=== PATIENT | female | born 1945 | race Native Hawaiian/Other Pacific Islander ===

== ENCOUNTER 2017-05-12 07:55 | Outpatient (CLI) | payer OTHER ==
[~2017-05-12 07:55] MED LIST: AMIT25TA22 PO; ASA LO-DOSE81 MG PO; CETIRIZINE5 MG PO; MELATONIN5 MG PO; MELOXICAM7.5 MG OR; MELOXICAM7.5 MG PO; OMEPRAZOLE20 M1 OR; TRAZ100T OR
[2017-05-12 08:10] LABS: PLATELET COUNT 344 K/uL (152-353)
[2017-05-12 09:15] LABS: POTASSIUM 4.4 mmol/L (3.6-5.2)
== END 2017-05-12 19:09 | disposition home or self-care (01) ==
LOC: LABW 07:55
PROVIDERS: Internal Medicine
DX: I10 Essential (primary) hypertension (principal)
CPT/HCPCS: 36415; 80053; 80061; 81000; 84439; 84443; 85027

== ENCOUNTER 2017-05-29 06:51 | Outpatient (CLI) | payer OTHER | END 2017-05-29 17:50 | disposition home or self-care (01) | LOC: LABW 06:51 | DX: R73.9 Hyperglycemia, unspecified (principal) | CPT/HCPCS: 36415; 82951; 82952; 83036 ==

== ENCOUNTER 2017-08-20 07:36 | Outpatient (CLI) | payer OTHER | END 2017-08-20 19:04 | disposition home or self-care (01) | LOC: LABW 07:36 | DX: E11.9 Type 2 diabetes mellitus without complications (principal) | CPT/HCPCS: 36415; 83036 ==

== ENCOUNTER 2017-11-13 08:12 | Outpatient (CLI) | payer OTHER | END 2017-11-13 19:40 | disposition home or self-care (01) | LOC: MAMMO 08:12 | DX: Z12.31 Encounter for screening mammogram for malignant neoplasm of breast (principal); M81.0 Age-related osteoporosis without current pathological fracture ==

== ENCOUNTER 2018-10-06 07:26 | Outpatient (CLI) | payer OTHER ==
[2018-10-06 08:21] LABS: PLATELET COUNT 339 K/uL (152-353)
[2018-10-06 08:48] LABS: POTASSIUM 4.6 mmol/L (3.6-5.2)
== END 2018-10-06 21:28 | disposition home or self-care (01) ==
LOC: LABW 07:26
PROVIDERS: Physician Assistant
DX: F41.1 Generalized anxiety disorder (principal); I10 Essential (primary) hypertension; R73.9 Hyperglycemia, unspecified; E55.9 Vitamin D deficiency, unspecified
CPT/HCPCS: 36415; 80053; 80061; 82306; 83036; 84439; 84443; 85027

== ENCOUNTER 2018-11-18 07:51 | Outpatient (CLI) | payer OTHER | END 2018-11-18 19:00 | disposition home or self-care (01) | LOC: MAMMO 07:51 | DX: Z12.31 Encounter for screening mammogram for malignant neoplasm of breast (principal) ==

== ENCOUNTER 2019-04-26 07:05 | Outpatient (CLI) | payer OTHER ==
[2019-04-26 07:22] LABS: PLATELET COUNT 340 K/uL (152-353)
[2019-04-26 10:33] LABS: POTASSIUM 4.2 mmol/L (3.6-5.2)
== END 2019-04-26 19:09 | disposition home or self-care (01) ==
LOC: LABW 07:05
PROVIDERS: Internal Medicine Nephrology
DX: I12.9 Hypertensive chronic kidney disease with stage 1 through stage 4 chronic kidney disease, or unspecified chronic kidney disease (principal); N18.3 Chronic kidney disease, stage 3 (moderate); E11.9 Type 2 diabetes mellitus without complications; M16.9 Osteoarthritis of hip, unspecified; E78.49 Other hyperlipidemia
CPT/HCPCS: 36415; 80053; 85027

== ENCOUNTER 2019-11-02 07:42 | Outpatient (CLI) | payer OTHER ==
[2019-11-02 08:14] LABS: PLATELET COUNT 343 K/uL (152-353)
[2019-11-02 08:37] LABS: POTASSIUM 4.3 mmol/L (3.6-5.2)
== END 2019-11-02 20:47 | disposition home or self-care (01) ==
LOC: LABW 07:42
PROVIDERS: Internal Medicine Nephrology
DX: Z00.00 Encounter for general adult medical examination without abnormal findings (principal); I12.9 Hypertensive chronic kidney disease with stage 1 through stage 4 chronic kidney disease, or unspecified chronic kidney disease; E11.9 Type 2 diabetes mellitus without complications; Z13.820 Encounter for screening for osteoporosis; E55.9 Vitamin D deficiency, unspecified; N18.3 Chronic kidney disease, stage 3 (moderate); E78.49 Other hyperlipidemia; M16.9 Osteoarthritis of hip, unspecified
CPT/HCPCS: 36415; 80053; 80061; 81000; 82306; 84439; 84443; 85027

== ENCOUNTER 2019-11-23 08:48 | Outpatient (CLI) | payer OTHER | END 2019-11-23 20:08 | disposition home or self-care (01) | LOC: MAMMO 08:48 | DX: Z13.820 Encounter for screening for osteoporosis (principal); Z12.31 Encounter for screening mammogram for malignant neoplasm of breast; N95.8 Other specified menopausal and perimenopausal disorders ==

== ENCOUNTER 2020-05-08 07:14 | Outpatient (CLI) | payer OTHER ==
[2020-05-08 08:09] LABS: PLATELET COUNT 321 K/uL (152-353)
== END 2020-05-08 22:02 | disposition home or self-care (01) ==
LOC: LABW 07:14
PROVIDERS: Internal Medicine Nephrology
DX: E11.9 Type 2 diabetes mellitus without complications (principal); E78.49 Other hyperlipidemia; G89.29 Other chronic pain; G62.89 Other specified polyneuropathies; I12.9 Hypertensive chronic kidney disease with stage 1 through stage 4 chronic kidney disease, or unspecified chronic kidney disease; N18.3 Chronic kidney disease, stage 3 (moderate); M16.9 Osteoarthritis of hip, unspecified
CPT/HCPCS: 36415; 80053; 82570; 84155; 85027

== ENCOUNTER 2020-05-24 07:08 | Outpatient (CLI) | payer OTHER ==
[2020-05-24 08:20] LABS: PLATELET COUNT 317 K/uL (152-353)
== END 2020-05-24 22:02 | disposition home or self-care (01) ==
LOC: LABW 07:08
PROVIDERS: Internal Medicine
DX: D64.89 Other specified anemias (principal); E11.9 Type 2 diabetes mellitus without complications
CPT/HCPCS: 36415; 80053; 80061; 81000; 82043; 82570; 82607; 82728; 82747; 83036; 83540; 83550; 84439; 84443; 85027

== ENCOUNTER 2020-12-14 07:11 | Outpatient (CLI) | payer OTHER ==
[2020-12-14 08:10] LABS: PLATELET COUNT 301 K/uL (152-353)
[2020-12-14 08:46] LABS: POTASSIUM 4.2 mmol/L (3.6-5.2)
== END 2020-12-14 20:35 | disposition home or self-care (01) ==
LOC: LABW 07:11
PROVIDERS: ATTEND Internal Medicine
DX: E11.9 Type 2 diabetes mellitus without complications (principal)
CPT/HCPCS: 36415; 80053; 80061; 81000; 82043; 83036; 84439; 84443; 85027

== ENCOUNTER 2021-01-23 09:14 | Outpatient (CLI) | payer OTHER | END 2021-01-23 19:48 | disposition home or self-care (01) | LOC: INF 09:14 | PROVIDERS: ATTEND Internal Medicine | DX: Z23 Encounter for immunization (principal) | CPT/HCPCS: 96372 ==

== ENCOUNTER 2021-02-20 08:18 | Outpatient (CLI) | payer OTHER | END 2021-02-20 19:51 | disposition home or self-care (01) | LOC: INF 08:18 | PROVIDERS: ATTEND Internal Medicine | DX: Z23 Encounter for immunization (principal) | CPT/HCPCS: 96372 ==

== ENCOUNTER 2021-07-13 06:59 | Outpatient (CLI) | payer OTHER ==
[2021-07-13 07:31] LABS: PLATELET COUNT 279 K/uL (152-353)
[2021-07-13 07:49] LABS: POTASSIUM 4.7 mmol/L (3.6-5.2)
== END 2021-07-13 19:03 | disposition home or self-care (01) ==
LOC: LABW 06:59
PROVIDERS: ATTEND Internal Medicine
DX: M54.2 Cervicalgia (principal); M54.5 Low back pain; E11.9 Type 2 diabetes mellitus without complications
CPT/HCPCS: 36415; 80053; 80061; 82043; 82570; 83036; 84439; 84443; 85027

== ENCOUNTER 2022-03-29 11:41 | Outpatient (CLI) | payer OTHER ==
[2022-03-29 11:56] LABS: PLATELET COUNT 285 K/uL (152-353)
[2022-03-29 12:12] LABS: POTASSIUM 4.4 mmol/L (3.6-5.2)
== END 2022-03-29 20:00 | disposition home or self-care (01) ==
LOC: LAB 11:41
PROVIDERS: ATTEND Internal Medicine
DX: E11.9 Type 2 diabetes mellitus without complications (principal); R82.998 Other abnormal findings in urine
CPT/HCPCS: 80053; 80061; 81000; 83036; 84439; 84443; 85027; 87077; 87086; 87088; 87186

== ENCOUNTER 2022-10-31 14:51 | Outpatient (CLI) | payer OTHER ==
[2022-10-31 16:33] LABS: PLATELET COUNT 299 K/uL (152-353)
[2022-10-31 16:41] LABS: POTASSIUM 4.4 mmol/L (3.6-5.2)
== END 2022-10-31 19:46 | disposition home or self-care (01) ==
LOC: LAB 14:51
PROVIDERS: ATTEND Internal Medicine
DX: E11.9 Type 2 diabetes mellitus without complications (principal); I10 Essential (primary) hypertension
CPT/HCPCS: 80053; 80061; 81002; 82043; 83036; 84439; 84443; 85027

== ENCOUNTER 2023-02-18 14:43 | Outpatient (CLI) | payer OTHER ==
[2023-02-18 15:26] LABS: PLATELET COUNT 327 K/uL (152-353)
[2023-02-18 15:29] LABS: POTASSIUM 3.9 mmol/L (3.6-5.2); SODIUM 140 mmol/L (136-145)
== END 2023-02-18 19:22 | disposition home or self-care (01) ==
LOC: LABW 14:43
PROVIDERS: ATTEND Orthopaedic Surgery
DX: Z79.899 Other long term (current) drug therapy (principal); Z13.228 Encounter for screening for other metabolic disorders; Z01.810 Encounter for preprocedural cardiovascular examination; Z01.812 Encounter for preprocedural laboratory examination; Z13.1 Encounter for screening for diabetes mellitus; Z13.6 Encounter for screening for cardiovascular disorders; I10 Essential (primary) hypertension; Z87.891 Personal history of nicotine dependence; Z79.01 Long term (current) use of anticoagulants; Z79.82 Long term (current) use of aspirin; E11.65 Type 2 diabetes mellitus with hyperglycemia; Z79.4 Long term (current) use of insulin; R68.89 Other general symptoms and signs; Z09 Encounter for follow-up examination after completed treatment for conditions other than malignant neoplasm
CPT/HCPCS: 36415; 80053; 85027; 85652; 86038; 86140; 86431

== ENCOUNTER 2024-01-07 12:33 | Outpatient (CLI) | payer OTHER ==
[2024-01-07 13:22] LABS: PLATELET COUNT 328 K/uL (152-353)
[2024-01-07 13:40] LABS: POTASSIUM 4.4 mmol/L (3.6-5.2)
== END 2024-01-07 19:05 | disposition home or self-care (01) ==
LOC: LAB 12:33
PROVIDERS: ATTEND Internal Medicine
DX: R07.89 Other chest pain (principal); E11.9 Type 2 diabetes mellitus without complications
CPT/HCPCS: 80053; 80061; 81002; 83036; 84439; 84443; 85027